=== PATIENT | female | born 1945 | race Caucasian/White ===

== ENCOUNTER 2016-10-12 14:49 | Emergency (ER) | payer OTHER ==
[~2016-10-12] VITALS: Ht 160 cm; Wt 80.0 kg
[~2016-10-12 14:49] MED LIST: ASPI1TAB91 PO; ATOR1TAB18 PO; BIOT1000 PO; BRIM0.2S4 EACH EYE; BUPR150CR PO; DOCU1CAP39 PO; ESTR0.5T3 PO; FURO1TAB60 PO; L-LY500C2 PO; LEVO50TA4 PO; LISI10TA3 PO; METF500 PO; MULT-135 PO; POTA-163 PO; TIMO0.5S5 EACH EYE; VITA400C28 PO
[2016-10-12 14:55] VITALS: BP 140/85; PULSE 73; RESP 18; TEMP 98; O2SAT 99
[2016-10-12] MEDS ORDERED: HYDR-3533 PO (15:08)
[2016-10-12] MEDS ORDERED: ROBA750T PO (15:13)
--- NOTE | 2016-10-12 15:14 | PD ---
HPI Chief Complaint: Back/ Neck Pain or Injury Time Seen by Provider: 15:08 Travel History International Travel<30 days: No Contact w/Intl Traveler<30days: No Traveled to known affect area: No History of Present Illness HPI 71-year-old female with a past medical history of hypertension, hyperlipidemia, diabetes, valve replacement, CABG 1 presents to the emergency department for evaluation of left low back pain that started 2 days ago. Patient states she moved the wrong way and the pain started. She states that the pain is worse with movement, relieved with sitting still. Patient states that she used a heating pad last night which resolved the pain. However, she is on her cough car today and hit a bump jarring her back and causing the pain. She states it comes as a spasm. She denies any flank pain. No fevers. No loss of bowel or bladder control. No saddle anesthesias. Patient denies any chest pain or shortness of breath. No abdominal pain. No nausea, vomiting, diarrhea. No history of nephrolithiasis. Patient does report history of back pain. She has no other complaints at this time. Patient denies any urinary symptoms. PFSH Past Medical History Hx Anticoagulant Therapy: Yes (BABY ASA DAILY) Arthritis: Yes Depression: Yes Heart Rhythm Problems: No Cancer: No Cardiovascular Problems: Yes (1 VESSEL BYPASS) High Cholesterol: Yes Chest Pain: No Congestive Heart Failure: No Diabetes: Yes Patient Takes Glucophage: Yes Diminished Hearing: No Endocrine: Yes Gastrointestinal Disorders: Yes (hx of gastric by-pass) GERD: No Glaucoma: Yes Genitourinary: No Hepatitis: No Hiatal Hernia: No Hypertension: Yes Immune Disorder: No Kidney Stones: No Musculoskeletal: Yes (arthritis in the hips and back) Neurologic: No Psychiatric: Yes (depression) Reproductive: No Respiratory: No Renal Failure: No Thyroid Disease: Yes Ulcer: No Tetanus Vaccination: > 5 Years Influenza Vaccination: Yes ?: Not Menopausal: Yes Past Surgical History Abdominal Surgery: Yes (gastric by-pass cholecystectomy) AICD: No Cholecystectomy: Yes Eye Surgery: Yes (right eye cataract removal) Gynecologic Surgery: Yes (hyterectomy) Hysterectomy: Yes Joint Replacement: No Oral Surgery: Yes (JAW ) Pacemaker: No Other Surgery: Yes Social History Alcohol Use: No Tobacco Use: No Substance Use: No Allergies-Medications (Allergen,Severity, Reaction): Coded Allergies: Whiskey (Unverified Allergy, Severe, of any kind causes itching, 10/12/16) Alcohol (Verified Allergy, Intermediate, Itching, 10/12/16) Floxcin (Verified Allergy, Unknown, 10/12/16) Reported Meds & Prescriptions Reported Meds & Active Scripts Active Robaxin (Methocarbamol) 750 Mg Tab 750 Mg PO TID PRN Lortab (Hydrocodone-Acetaminophen) 5-325 Mg Tab 1 Tab PO Q6H PRN Potassium Chloride ER (Potassium Chloride) 20 Meq Tab 20 Meq PO DAILY Lasix (Furosemide) 40 Mg Tab 40 Mg PO DAILY Glucophage (Metformin HCl) 500 Mg Tab 250 Mg PO BIDPC Lisinopril 10 Mg Tab 10 Mg PO DAILY Dok (Docusate Sodium) 100 Mg Cap 100 Mg PO BID Reported Atorvastatin (Atorvastatin Calcium) 80 Mg Tab 80 Mg PO DAILY Vitamin D (Cholecalciferol) Unknown Strength Cap 1 Cap PO HS l-Lysine (Lysine) Unknown Strength Cap 1 Cap PO HS Timoptic Opth Drops (Timolol Opth Drops) 0.5 % Soln 1 Drop EACH EYE BID Levothyroxine (Levothyroxine Sodium) 50 Mcg Tab 50 Mcg PO HS Multi Vitamin (Multiple Vitamin) 1 Tab Tab 1 Tab PO DAILY Estrace (Estradiol) 0.5 Mg Tab 0.5 Mg PO DAILY Wellbutrin SR 12 HR (Bupropion HCl) 150 Mg Tab 150 Mg PO Q12HR Brimonidine Opth Drops (Brimonidine Tartrate) 0.2% Soln 1 Drop EACH EYE BID Biotin 1,000 Mcg Tab 1,000 Mg PO HS Aspirin Adult Low Strength (Aspirin) 81 Mg Tabdr 81 Mg PO DAILY Review of Systems Except as stated in HPI: all other systems reviewed are Neg Physical Exam Narrative GENERAL: Well-nourished, well-developed female patient, ambulatory with a steady gait. Afebrile. SKIN: Focused skin assessment warm/dry. No rashes noted. HEAD: Normocephalic. Atraumatic. EYES: No scleral icterus. No injection or drainage. NECK: Supple, trachea midline. No JVD or lymphadenopathy. CARDIOVASCULAR: Regular rate and rhythm without murmurs, gallops, or rubs. Bilateral radial and pedal pulses are 2+. RESPIRATORY: Breath sounds equal bilaterally. No accessory muscle use. Lungs sounds are clear to auscultation. GASTROINTESTINAL: Abdomen soft, non-tender, nondistended. MUSCULOSKELETAL: No cyanosis, or edema. Bilateral upper and lower extremity strength 5/5. All extremities are neurovascularly intact. BACK: Nontender without obvious deformity. No CVA tenderness. No midline spinal tenderness. Patient's tenderness over left lumbar paraspinal musculature. Straight leg raise is negative bilaterally. Data Data Last Documented VS Vital Signs Date Time Temp Pulse Resp B/P Pulse Ox O2 Delivery O2 Flow Rate FiO2 10/12/16 14:55 98.0 73 18 140/85 99 Orders Ketorolac Inj (Toradol Inj) (10/12/16 15:15) Orphenadrine Inj (Norflex Inj) (10/12/16 15:15) [facility] Medical Decision Making Medical Screen Exam Complete: Yes Emergency Medical Condition: Yes Medical Record Reviewed: Yes Differential Diagnosis Muscle spasm versus muscle strain versus herniated disc Narrative Course 71-year-old female presents to the emergency department for evaluation of left low back pain that started after moving the wrong way. Pain is relieved with rest, worse with movement. No red flag symptoms. No injury. Pain was relieved after he had, but worsened after she was riding her cough car and hit a bump. I am able to reproduce the pain over the musculature. The pain is completely gone with the patient sitting still, worsens with movement. Symptoms and physical are consistent with a muscle spasm. The patient states that she is taking Aleve at home for the pain. She last took this at 5 AM. The patient is given Toradol 30 mg IM, Norflex 60 mg IM. She'll be discharged short-term prescription for Lortab and Robaxin. She is encouraged to continue using her heating pad on low and follow-up with her primary care physician. She is to return for any acute worsening of symptoms. Patient verbalizes agreement and understanding. The patient was discharged in stable condition with instructions, including return instructions and follow up instructions. Diagnosis Primary Impression: Muscle spasm Referrals: Primary Care Physician call for appointment Patient Instructions: General Instructions, Muscle Spasm (ED) Additional Instructions: Take your Aleve as directed as needed for [id number] pain. Take Lortab for moderate to severe pain. Caution this can make you drowsy do not drive after taking. Take Robaxin as instructed as needed. Heating pad on low for 20 minutes 4-5 times daily. Follow-up with your primary care physician. Return to the emergency department for any acute worsening of symptoms. Med/Other Pt SpecificInfo: Prescription(s) given Scripts Methocarbamol (Robaxin)750 Mg Atm740 Mg PO TID PRN (MUSCLE SPASM) #21 TAB Ref 0 Prov:Yesica Ortiz 10/12/16 Hydrocodone-Acetaminophen (Lortab)5-325 Mg Tab1 Tab PO Q6H PRN (PAIN) #12 TAB Ref 0 Prov:Anastacia Porter MD 10/12/16 Disposition: 01 DISCHARGE HOME Condition: Stable Yesica Ortiz October 12, 2016 15:14
[2016-10-12] MEDS ORDERED: KETOROLAC TROMETHAMINE 60 MG/2 ML (IM) VIAL IM ONE (15:15)
[2016-10-12] MEDS ORDERED: ORPHENADRINE INJ 60 MG/2 ML AMP IM ONE (15:15)
== END 2016-10-12 15:27 | disposition home or self-care (01) ==
LOC: PHEFT 14:49
DX: M62.838 Other muscle spasm (principal); I10 Essential (primary) hypertension; E78.5 Hyperlipidemia, unspecified; E11.9 Type 2 diabetes mellitus without complications; M19.90 Unspecified osteoarthritis, unspecified site; F32.9 Major depressive disorder, single episode, unspecified; E78.00 Pure hypercholesterolemia, unspecified; Z79.899 Other long term (current) drug therapy
CPT/HCPCS: 96372; 99283; J1885; J2360

== ENCOUNTER 2017-07-01 11:11 | Emergency (ER) | payer OTHER ==
[~2017-07-01] VITALS: Ht 160 cm; Wt 89.0 kg
[~2017-07-01 11:11] MED LIST changes: -ASPI1TAB91 PO; +ASPI81TA16 PO; -ATOR1TAB18 PO; +ATOR80TA45 PO; +HYDR-3533 PO; +ROBA750T PO
[2017-07-01 11:13] VITALS: BP 129/61; PULSE 75; RESP 16; TEMP 98.3; O2SAT 96
[2017-07-01] MEDS ORDERED: LATA0.002 LEFT EYE (11:29)
[2017-07-01] MEDS ORDERED: DORZ2SOL LEFT EYE (11:29)
[2017-07-01] MEDS ORDERED: SODIUM CHLORIDE 0.9% FLUSH 10 ML FLUSH IVF PRN (11:30)
[2017-07-01] MEDS ORDERED: SODIUM CHLOR 0.9% 1000 ML INJ 1,000 ML IV ONE (11:30)
[2017-07-01] MEDS ORDERED: RESP: ALBUTEROL 2.5 MG/IPRATROPIUM 0.5 MG NEB (SCH) INH ONE (11:30)
--- NOTE | 2017-07-01 11:37 | PD ---
HPI . Weakness Chief Complaint: General Weakness Time Seen by Provider: 11:19 Travel History International Travel<30 days: No Contact w/Intl Traveler<30days: No Traveled to known affect area: No History of Present Illness HPI Patient presents with chief complaint of weakness. Onset was last night. She reports that she has had flulike symptoms for over a week. She is just completing a Z-Michael. She has been taking Tessalon Perles and a cough syrup. Despite all of this, she has continued to have a pronounced cough. It sounds like she has been having paroxysms of coughing which caused a syncopal event last night. She states she cannot remember the event but her friend states that it was associated with a coughing spell. Symptoms have been present for over a week. Symptoms are worsening. There have been no modifying factors. PFSH Past Medical History Hx Anticoagulant Therapy: Yes (BABY ASA DAILY) Arthritis: Yes Depression: Yes Heart Rhythm Problems: No Cancer: No Cardiovascular Problems: Yes (BYPASS, AORTIC VALVE REPLACE) High Cholesterol: Yes Chest Pain: No Congestive Heart Failure: No Diabetes: Yes Diminished Hearing: No Endocrine: Yes Gastrointestinal Disorders: Yes (hx of gastric by-pass) GERD: No Glaucoma: Yes Genitourinary: No Hepatitis: No Hiatal Hernia: No Hypertension: Yes Immune Disorder: No Kidney Stones: No Musculoskeletal: Yes (arthritis in the hips and back) Neurologic: No Psychiatric: Yes (depression) Reproductive: No Respiratory: No Renal Failure: No Thyroid Disease: Yes Ulcer: No ?: Not Menopausal: Yes Past Surgical History Abdominal Surgery: Yes (gastric by-pass cholecystectomy) AICD: No Cholecystectomy: Yes Eye Surgery: Yes (right eye cataract removal) Gynecologic Surgery: Yes (hyterectomy) Hysterectomy: Yes Joint Replacement: No Oral Surgery: Yes (JAW ) Pacemaker: No Other Surgery: Yes Social History Alcohol Use: No Tobacco Use: No Substance Use: No Allergies-Medications (Allergen,Severity, Reaction): Coded Allergies: ethyl alcohol (Unverified Allergy, Severe, of any kind causes itching, 07/01) alcohol (Unverified Allergy, Intermediate, Itching, 07/01/17) ofloxacin (Unverified Allergy, Unknown, 07/01/17) Reported Meds & Prescriptions Reported Meds & Active Scripts Active Dok (Docusate Sodium) 100 Mg Cap 100 Mg PO BID Reported Dorzolamide Opth Drops (Dorzolamide HCl) 2% Soln 1 Drop LEFT EYE TID Latanoprost Opth Drops (Latanoprost) 0.005% Drops 1 Drop LEFT EYE HS Refrigerate until opened. l-Lysine (Lysine) Unknown Strength Cap 1 Cap PO HS Timoptic Opth Drops (Timolol Opth Drops) 0.5 % Soln 1 Drop EACH EYE BID Levothyroxine (Levothyroxine Sodium) 50 Mcg Tab 50 Mcg PO HS Multi Vitamin (Multiple Vitamin) 1 Tab Tab 1 Tab PO DAILY Estrace (Estradiol) 0.5 Mg Tab 0.5 Mg PO DAILY Wellbutrin SR 12 HR (Bupropion HCl) 150 Mg Tab 150 Mg PO Q12HR Brimonidine Opth Drops (Brimonidine Tartrate) 0.2% Soln 1 Drop EACH EYE BID Aspirin Adult Low Strength (Aspirin) 81 Mg Tabdr 81 Mg PO DAILY Review of Systems Except as stated in HPI: all other systems reviewed are Neg Respiratory: Positive: Cough, Shortness of Breath, Wheezing Neurologic: Positive: Weakness, Syncope Physical Exam Narrative GENERAL: Awake and alert and in no acute distress. SKIN: warm/dry. Normal color and turgor. HEAD: Normocephalic. Atraumatic. EYES: Pupils equal and round. No scleral icterus. No injection or drainage. ENT: No nasal bleeding or discharge. Mucous membranes pink and moist. NECK: Trachea midline. Full range of motion without pain.. CARDIOVASCULAR: Regular rate and rhythm. RESPIRATORY: No accessory muscle use. Scattered rhonchi which clear with coughing. Breath sounds equal bilaterally. GASTROINTESTINAL: Abdomen soft. Nontender. Bowel sounds present. Nondistended. MUSCULOSKELETAL: No obvious deformities. NEUROLOGICAL: Awake and alert. No obvious cranial nerve deficits. Motor grossly within normal limits. Normal speech. PSYCHIATRIC: Appropriate mood and affect; insight and judgment normal. Data Data Last Documented VS Vital Signs Date Time Temp Pulse Resp B/P (MAP) Pulse Ox O2 Delivery O2 Flow Rate FiO2 07/01/17 11:57 18 96 Room Air 07/01/17 11:38 21 07/01/17 11:13 98.3 75 129/61 (83) Orders Orders Basic Metabolic Panel (Bmp) (07/01/17 11:25) Complete Blood Count With Diff (07/01/17 11:25) Lactic Acid Sepsis Protocol (07/01/17 11:25) Blood Culture (07/01/17 11:25) Chest, Single Ap (07/01/17 11:25) Iv Access Insert/Monitor (07/01/17 11:25) Sodium Chloride 0.9% Flush (Ns Flush) (07/01/17 11:30) Albuterol-Ipratropium Neb (Duoneb Neb) (07/01/17 11:30) Sodium Chlor 0.9% 1000 Ml Inj (Ns 1000 M (07/01/17 11:30) Labs Laboratory Tests Test 07/01/17 11:51 White Blood Count 5.1 TH/MM3 Red Blood Count 4.42 MIL/MM3 Hemoglobin 11.7 GM/DL Hematocrit 35.9 % Mean Corpuscular Volume 81.3 FL Mean Corpuscular Hemoglobin 26.5 PG Mean Corpuscular Hemoglobin Concent 32.6 % Red Cell Distribution Width 13.8 % Platelet Count 197 TH/MM3 Mean Platelet Volume 8.9 FL Neutrophils (%) (Auto) 53.0 % Lymphocytes (%) (Auto) 27.7 % Monocytes (%) (Auto) 10.4 % Eosinophils (%) (Auto) 7.6 % Basophils (%) (Auto) 1.3 % Neutrophils # (Auto) 2.7 TH/MM3 Lymphocytes # (Auto) 1.4 TH/MM3 Monocytes # (Auto) 0.5 TH/MM3 Eosinophils # (Auto) 0.4 TH/MM3 Basophils # (Auto) 0.1 TH/MM3 CBC Comment DIFF FINAL Differential Comment Blood Urea Nitrogen 11 MG/DL Creatinine 1.20 MG/DL Random Glucose 113 MG/DL Calcium Level 8.0 MG/DL Sodium Level 141 MEQ/L Potassium Level 3.8 MEQ/L Chloride Level 107 MEQ/L Carbon Dioxide Level 28.9 MEQ/L Anion Gap 5 MEQ/L Estimat Glomerular Filtration Rate 45 ML/MIN Lactic Acid Level 1.6 mmol/L MDM Medical Decision Making Medical Screen Exam Complete: Yes Emergency Medical Condition: Yes Differential Diagnosis Differential diagnosis includes but is not limited to viral respiratory illness , bronchitis, pneumonia, allergies, CHF, asthma/COPD. Narrative Course This patient presents with cough associated with flulike symptoms. I suspect that this is just a normal progression of the flu. She will be evaluated for possible pneumonia or electrolyte abnormality. I will give her a liter of fluid all her test are pending. This will probably make her feel better. Last Impressions Chest X-Ray 07/01/17 1125 Signed Impressions: Service Date/Time: Saturday, July 01, 2017 11:31 - CONCLUSION: No acute disease. There is no evidence of pneumonia. Vivek Pete MD Chest x-ray was independently reviewed by me. CBC Diagram 07/01/17 11:51 BMP Diagram 07/01/17 11:51 Calcium Level 8.0 L LA 1.6 The history, exam, diagnostic testing, and current condition do not suggest any significant pathology to warrant further testing, continued ED treatment, admission, or surgical evaluation at this point. No EMC was found. The patient 's condition is stable and appropriate for discharge. Diagnosis Primary Impression: Cough Patient Instructions: Acute Cough (ED), General Instructions Med/Other Pt SpecificInfo: Prescription(s) given Scripts Hydrocodone-Chlorpheniramine 12 HR Liq (Tussionex Pennkinetic Ext 12 HR Liq) 10- 8 Mg/5 Ml Susp 5 ML PO Q12H Y for COUGH AND/OR COLD SYMPTOMS, #60 ML 0 Refills Prov: Samara Murphy MD 07/01/17 Disposition: 01 DISCHARGE HOME Condition: Stable Samara Murphy MD Jul 01, 2017 11:37
[2017-07-01 11:38] VITALS: O2SAT 98
--- NOTE | 2017-07-01 11:41 | RADRPT ---
EXAM DATE/TIME: 07/01/2017 11:31 [facility] COMPARISON: CHEST SINGLE AP, May 19, 2016, 4:37. INDICATIONS : Cough MEDICAL HISTORY : Hypertension. Hypercholesterolemia. Myocardial infarction.Thyroid disease, Arthritis SURGICAL HISTORY : Cholecystectomy. Gastric bypass. Hysterectomy ENCOUNTER: Initial ACUITY: 1 day PAIN SCORE: 1/10 LOCATION: Bilateral chest FINDINGS: A single view of the chest demonstrates the lungs to be symmetrically aerated without evidence of mas s, infiltrate or effusion. The cardiomediastinal contours are unremarkable. Osseous structures are intact. The patient is again noted to be status post median sternotomy. Atherosclerotic changes are p resent in the aorta. CONCLUSION: No acute disease. There is no evidence of pneumonia. Vivek Pete MD on July 01, 2017 at 11:38 Board Certified Radiologist. This report was verified electronically.
[2017-07-01 12:05] LABS: AUTOMATED NEUTROPHIL # 2.7 TH/MM3 (1.8-7.7); BASOPHIL # 0.1 TH/MM3 (0-0.2); BASOPHIL % 1.3 % (0.0-2.0); EOSINOPHIL # 0.4 TH/MM3 (0-0.4); EOSINOPHIL % 7.6 % (0.0-4.0); HEMATOCRIT 35.9 % (35.0-46.0); HEMOGLOBIN 11.7 GM/DL (11.6-15.3); LYMPH % 27.7 % (9.0-44.0); LYMPHOCYTE # 1.4 TH/MM3 (1.0-4.8); MEAN CELL VOLUME 81.3 FL (80.0-100.0); MEAN CORPUSCULAR HEMOGLOBIN 26.5 PG (27.0-34.0); MEAN CORPUSCULAR HGB CONC 32.6 % (32.0-36.0); MEAN PLATELET VOLUME 8.9 FL (7.0-11.0); MONO % 10.4 % (0.0-8.0); MONOCYTE # 0.5 TH/MM3 (0-0.9); PLATELET COUNT 197 TH/MM3 (150-450); RED BLOOD COUNT 4.42 MIL/MM3 (4.00-5.30); RED CELL DISTRIBUTION WIDTH 13.8 % (11.6-17.2); WHITE BLOOD COUNT 5.1 TH/MM3 (4.0-11.0)
[2017-07-01 12:22] LABS: BICARBONATE 28.9 MEQ/L (21.0-32.0)
[2017-07-01 12:25] LABS: CREATININE 1.2 MG/DL (0.50-1.00)
[2017-07-01] MEDS ORDERED: TUSSSUS2 PO (12:46)
[2017-07-01 13:14] VITALS: BP 126/62; PULSE 64; RESP 18; O2SAT 95
== END 2017-07-01 13:22 | disposition home or self-care (01) ==
LOC: PHED 11:11
DX: R05 Cough (principal); R53.1 Weakness
CPT/HCPCS: 71045; 80048; 83605; 85025; 87040; 94664; 99284; J7030